=== PATIENT | female | born 1995 | race Caucasian/White ===

== ENCOUNTER 2022-11-09 15:15 | Outpatient (CLI) | payer OTHER ==
[2022-11-09 21:15] LABS: BASOPHILS % (AUTO) 0.4 %; EOSINOPHILS # (AUTO) 0.2 10^3/uL (0.0-0.7); EOSINOPHILS % (AUTO) 1.4 %; HCT - HEMATOCRIT 40.5 % (37.0-47.0); LYMPHOCYTES # (AUTO) 1.8 10^3/uL (1.5-3.5); LYMPHOCYTES % (AUTO) 15.4 %; MEAN CORPUSCULAR HEMOGLOBIN 27.1 pg (27.0-31.0); MEAN CORPUSCULAR HGB CONC 32.1 g/dL (32.0-36.0); MEAN CORPUSCULAR VOLUME 84.4 fL (81.0-99.0); MONOCYTES # (AUTO) 0.9 10^3/uL (0.0-1.0); MONOCYTES % (AUTO) 7.5 %; NEUTROPHILS # (AUTO) 8.6 10^3/uL (1.5-6.6); PLT - PLATELET COUNT 370 10^3/uL (130-450); RED CELL DISTRIBUTION WIDTH 12.9 % (12.0-15.0); WHITE BLOOD COUNT 11.4 x10^3/uL (4.8-10.8)
[2022-11-09 21:30] LABS: ALBUMIN 4.7 g/dL (3.2-5.5); ALBUMIN/GLOBULIN RATIO 1.4 (1.0-2.2); CALCIUM 10.1 mg/dL (8.5-10.3); CREATININE 0.6 mg/dL (0.6-1.3); POTASSIUM 4.4 mmol/L (3.5-4.5); TOTAL PROTEIN 8.1 g/dL (6.4-8.9)
== END 2022-11-09 15:30 | disposition home or self-care (01) ==
LOC: LAB.N 15:15
PROVIDERS: ATTEND Specialist
DX: R55 Syncope and collapse (principal)
CPT/HCPCS: 36415; 80053; 84443; 85025

== ENCOUNTER 2023-08-17 16:35 | Outpatient (CLI) | payer OTHER ==
--- NOTE | 2023-08-17 18:29 | Ultrasound Report ---
PROCEDURE: Pelvic w/Transvaginal INDICATIONS: IRREGULAR MENSTRATION TECHNIQUE: Real-time scanning was performed of the pelvic organs, with image documentation. Additional endovagi nal scanning was necessary due to incomplete visualization of the adnexal and endometrial structures by transabdominal scanning. COMPARISON: None. FINDINGS: Uterus: Uterus is anteverted and normal in size at 7. 3.5 x 3.9 cm. The myometrium is heterogeneous without dominant mass.. The endometrium measures 8 mm in combined thickness. Normal vascularity se en in the uterus. There is a round hyperechoic mass in the right posterior proximal cervix measuring 0.8 x 0.7 x 0.9 cm without increased vascularity. A few small adjacent nabothian cysts are noted. There is trace simple fluid in the endocervix. Ovaries: The right ovary measures 4.4 x 2.7 x 1.9 cm, with a calculated ovarian volume of 11.8 cc. The left ovary measures 5.4 x 4.0 x 4.5 cm, with a calculated ovarian volume of 50 cc. The right ovar y has a normal follicular echotexture and contains a dominant follicle measuring 1.7 cm. Normal vascu larity. The left ovary contains a large, predominantly echogenic nodule measuring 4.0 x 4.2 x 3.1 cm. There is detectable internal vascularity but no significant flow by color Doppler. The peripheral ov peggy tissue contains follicles. Other: No pathologic free abdominal or pelvic fluid. IMPRESSION: 4.2 cm predominantly echogenic solid left ovarian mass has features suspicious for a dermoid tumor. E ndometrioma or malignancy are felt less likely. Subcentimeter echogenic focus within the cervix without increased vascular flow may be symptomatic. C ontrast enhanced pelvic MRI may be useful for further characterization of the cervical and left ovari an lesions. Reviewed by: Chloe Crook MD on 08/17/2023 6:28 PM PDT Approved by: Chloe Crook MD on 08/17/2023 6:28 PM PDT Station ID: [id number]
== END 2023-08-17 16:36 | disposition home or self-care (01) ==
LOC: DI 16:35
PROVIDERS: ATTEND Student in an Organized Health Care Education/Training Program
DX: N92.6 Irregular menstruation, unspecified (principal); R93.89 Abnormal findings on diagnostic imaging of other specified body structures

== ENCOUNTER 2023-09-07 16:11 | Outpatient (CLI) | payer OTHER ==
[~2023-09-07 16:11] MED LIST: GADOTERATE MEGLUMINE 7.5 MMOL/15 ML VIAL ONE
[2023-09-07] MEDS: GADOTERATE MEGLUMINE 7.5 MMOL/15 ML VIAL IVP ONE (17:30)
--- NOTE | 2023-09-08 10:32 | MRI Report ---
PROCEDURE: Pelvis W/WO INDICATIONS: OVARIAN CYST CONTRAST: 15ML cLARISCAN TECHNIQUE: Coronal ultra fast SE, sagittal breath-hold T2 FSE; axial T1 FSE with and without fat saturation thro ugh the pelvis. Optional long- and short-axis uterine nonbreath-hold T2 FSE through the uterus. Sag ittal or axial dynamic ultra fast GE during administration of contrast. Post-contrast axial or coron al ultra fast GE / 2-D spoiled GE with fat saturation from the iliac crests to the symphysis. Option al diffusion weighted imaging and ADC may be performed. COMPARISON: Ultrasound 08/17/2023 FINDINGS: Image quality: Excellent. Uterus: Uterus is normal in size. Endometrium is normal in thickness. Junctional zone is normal in thickness at 12 mm or less. Nabothian cysts. Adnexa: Both ovaries are normal in size. Left ovarian mass containing fat and solid components measu ring 4.7 x 3.2 x 3.1 cm, most consistent with a mature teratoma. Peripheral follicles within the ovar ies, of various sizes. Urinary system: Bladder wall is normal in thickness. Distal ureters are non distended. Urethra yonatan ears normal in morphology. Nodes and vessels: No pelvic or inguinal adenopathy by size criteria. Iliac vessels are normal in s ize. Bowel and peritoneum: No pathologic free pelvic fluid. Inferior colon and small bowel loops are nor mal in caliber. Soft tissues: No inguinal hernias. No findings of pelvic floor incompetence in the absence of provo cation. Bones: Marrow demonstrates normal overall signal. IMPRESSION: Left ovarian mass consistent with mature teratoma. Greater than 12 follicles per ovary, which can be seen in the clinical setting of polycystic ovarian syndrome. Reviewed by: Yonny Escamilla MD on 09/08/2023 10:30 AM PDT Approved by: Yonny Escamilla MD on 09/08/2023 10:30 AM PDT Station ID: [id number]
== END 2023-09-07 16:12 | disposition home or self-care (01) ==
LOC: DI 16:11
PROVIDERS: ATTEND Nurse Practitioner Family
DX: N83.292 Other ovarian cyst, left side (principal)